=== PATIENT | female | born 1970 ===

== ENCOUNTER 2024-03-17 08:47 | Outpatient (CLI) | payer BC, SELFPAY ==
--- NOTE | ~2024-03-17 | MR_ITS ---
EXAMINATION: MR wrist LT wo con DATE: 03/17/2024 09:39 INDICATION: Acute onset left wrist pain TECHNIQUE: Magnetic resonance imaging (MRI) of the left wrist was performed without intravenous contr ast. Sequences performed include axial PD-weighted FSE and PD-weighted FS FSE, coronal PD-weighted FS FSE and T1-weighted SE, and sagittal PD-weighted FS FSE and PD-weighted FSE. COMPARISON: None FINDINGS: Intrinsic ligaments: The scapholunate and lunotriquetral ligaments are normal. Triangular fibrocartilage complex (TFCC): The triangular fibrocartilage including its foveal and styloid attachments as well as the dorsal and volar radioulnar ligaments are normal. The ulnar collateral ligament, ulnotriquetral ligament and men iscal homologue are normal. There is thickening of the radial side of the extensor carpi ulnaris sub sheath suggestion of partial tear and stripping of the soft tissues from its attachment to the ulnar rim of the ECU groove. Extensor wrist: Extensor tendons of the wrist are normal. No tenosynovitis. Flexor wrist: The flexor tendons of the wrist are normal. No abnormality in the carpal tunnel with normal median n erve. Guyon's canal: Guyon's canal including the ulnar nerve and artery are normal. Bones/other: Normal marrow signal. No fracture, erosions, avascular necrosis or abnormal marrow replacing process. 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 Small joint effusion with synovitis at the distal radiou lnar joint. IMPRESSION: 1. Nonspecific small joint effusion and synovitis at the distal radioulnar joint. 2. Tear of the extensor carpi ulnaris of sheath but without subluxation in the imaged position of the normal-appearing extensor carpi ulnaris tendon. 3. 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 Reviewed, dictated and finalized at location A. IMPRESSION: 1. Nonspecific small joint effusion and synovitis at the distal radioulnar join t. 2. Tear of the extensor carpi ulnaris of sheath but without subluxation in the imaged position of the normal-appearing extensor carpi ulnaris tendon. 3. 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
== END 2024-03-17 08:48 ==
LOC: GOSHIMG 08:50
PROVIDERS: Visit Provider Orthopaedic Surgery Hand Surgery
DX: M19.032 Primary osteoarthritis, left wrist (principal); M25.432 Effusion, left wrist
CPT/HCPCS: 73221